=== PATIENT | male | born 1990 | race Caucasian/White ===

== ENCOUNTER 2019-07-07 10:42 | Outpatient (CLI) | payer OTHER, SELFPAY ==
--- NOTE | ~2019-07-07 | MR_ITS ---
EXAMINATION: MR wrist LT wo con DATE: 07/07/2019 12:12 INDICATION: Left wrist injury and pain. TECHNIQUE: Magnetic resonance imaging (MRI) of the wrist was performed without intravenous contrast. Sequences performed include coronal T1-weighted FSE, coronal PD-weighted FS FSE, axial PD-weighted FS FSE, axial PD-weighted FSE, sagittal PD-weighted FSE, and sagittal PD-weighted FS FSE. COMPARISON: None FINDINGS: Intrinsic ligaments: Scapholunate ligament and lunotriquetral ligament are normal. Triangular fibrocartilage complex (TFCC): The triangular fibrocartilage is normal. Extensor wrist: The extensor tendons are normal. Flexor wrist: The flexor tendons are normal. Median nerve is normal. Guyon's canal: Ulnar nerve is normal. Bones/other: Bone alignment is normal. No fracture. Bone marrow signal intensity is normal. The joint spaces are n ormal. There is a skin marker palmar to the ulnar side of the carpus. There is subcutaneous fat stran ding of the palm in this area, consistent with inflammation. IMPRESSION: 1. Mild subcutaneous inflammation in the palm in the patient's area of concern. Reviewed, dictated and finalized at location A.
== END 2019-07-07 10:43 | disposition home or self-care (01) ==
DX: M25.532 Pain in left wrist (principal); S60.212A Contusion of left wrist, initial encounter; S63.8X2A Sprain of other part of left wrist and hand, initial encounter
CPT/HCPCS: 73221